=== PATIENT | male | born 1945 | race Caucasian/White ===

== ENCOUNTER 2017-03-13 20:33 | Emergency (ER) | payer OTHER ==
[~2017-03-13] VITALS: Ht 165.1 cm; Wt 88.0 kg
[2017-03-13 22:31] LABS: HEMATOCRIT 46.6 % (38.0-50.0); MCHC 33.3 G/DL (30.0-36.0); MCV 84.1 FL (86-99); MEAN PLAT.VOLUME 10.5 uM^3 (9.0-12.4); PLATELET COUNT 220 K/uL (156-360); RBC DIS.WIDTH-SD 39.8 % (39-53); RED BLOOD COUNT 5.54 M/uL (4.00-5.50)
[2017-03-13 22:42] LABS: CHLORIDE 102 mEq/L (99-109); POTASSIUM 4.4 mEq/L (3.7-5.4); SODIUM 137 mEq/L (136-147)
[2017-03-13 22:44] LABS: GLUCOSE 113 mg/dL (70-99)
[2017-03-13 22:45] LABS: ANION GAP 10 MEQ/L (2-14)
[2017-03-13 22:46] LABS: TOTAL BILIRUBIN 0.6 mg/dL (0.0-1.0)
[2017-03-13 22:48] LABS: ALKALINE PHOSPHATASE 57 IU/L (3-129); GFR ESTIMATE (CALCULATED) 42 mL/min/
[2017-03-13 22:49] LABS: UREA NITROGEN (BUN) 21 mg/dL (9-23)
[2017-03-13 22:51] LABS: CREATINE KINASE 85 IU/L (1-294); TOTAL CK 85 IU/L (1-294)
[2017-03-13 22:53] LABS: TROP-I INTERPRETATION NEGATIVE; TROPONIN-I < 0.01 ng/mL (0.0-0.30)
[2017-03-13 22:56] LABS: CK-MB 1.9 ng/mL (0.0-4.9)
[2017-03-14 00:54] LABS: ADD MIUA? NO; BILIRUBIN NEGATIVE; BLOOD NEGATIVE; COLOR YELLOW ((YELLOW)); GLUCOSE (STRIP) NEGATIVE; KETONES NEGATIVE; LEUKOCYTES NEGATIVE; NITRITE NEGATIVE; PROTEIN (STRIP) NEGATIVE; UROBILINOGEN 0.2 MG/DL (0.2-1.0)
[2017-03-14 01:21] LABS: SPECIFIC GRAVITY 1.054 (1.000-1.030)
[2017-03-14] MEDS ORDERED: FLAGYL500 MG PO (01:38)
[2017-03-14] MEDS ORDERED: CIPRO500 MG PO (01:38)
[2017-03-14] MEDS ORDERED: BENTYL20 MG PO (01:38)
[2017-03-14 02:00] VITALS: BP 119/81
== END 2017-03-14 02:34 | disposition home or self-care (01) ==
LOC: EME 20:33 → RME 20:33
PROVIDERS: Nurse Practitioner Family
DX: K52.9 Noninfective gastroenteritis and colitis, unspecified (principal); K57.30 Diverticulosis of large intestine without perforation or abscess without bleeding; Z88.0 Allergy status to penicillin; Z87.891 Personal history of nicotine dependence; Z90.49 Acquired absence of other specified parts of digestive tract
CPT/HCPCS: 74177; 80053; 81003; 82550; 82553; 83605; 84484; 85027; 93005; 99281; 99284; J7030; J7040